=== PATIENT | female | born 1985 | race Caucasian/White ===

== ENCOUNTER 2021-12-13 18:51 | Outpatient (CLI) | payer MEDICAID ==
--- NOTE | 2021-12-14 14:49 | Ultrasound Report ---
PROCEDURE: OB Detailed Eval INDICATIONS: SUPERVISION OF OUTSIDE/PRIOR DATING DATA: Last menstrual period (LMP): Unknown. LMP-based estimated date of delivery (YANN): Unknown. First dating scan (date and location): 09/08/2021. Estimated date of delivery (YANN) from first dating scan: 04/30/2022. The below data below was generated using the ultrasound YANN of 04/30/2022 TECHNIQUE: Real-time scanning was performed of the fetus, with image documentation and biometric measurements. COMPARISON: OB ultrasound report 09/08/2021. No images are available for comparison FINDINGS: General: A single living intrauterine gestation is present. Presentation: Variable Placenta: Placental position is posterior, without previa. Amniotic fluid index: 14.0 cm, been normal limits for gestational age. Largest pocket 4.3 cm heart rate: 148 beats per minute. Maternal cervical canal: 5.2 cm long; normal length is 2.5 cm or more. biometrics: Biparietal diameter: 4.8 cm 20 weeks 4 days Head circumference: 18.6 cm 21 weeks 0 days Abdominal circumference: 15.8 cm 26 weeks 6 days Femur length: 3.5 cm 21 weeks 0 days Estimated gestational age from initial scan: 20 weeks 2 days Composite gestational age from present scan: 20 weeks 6 days Estimated weight and percentile: 386 g 79th percentile Measurement variability in biometric dating: +/- 10 days from 12-20 weeks gestation, +/- 2 weeks from 20-30 weeks gestation, +/- 3 weeks at 30 weeks gestation or later. Anatomic survey: Neuro: Ventricles are normal at less than 10 mm. Cisterna magna is normal at 3-11 mm. Cerebellum i s normal in size and morphology. Nuchal skin fold: Normal at less than 6 mm between 14 and 20 weeks gestational age. Face: Nose and lips, facial profile are normal. Spine: No evidence for spina bifida. Heart: 4-chambered heart and ventricular outflow tracts are suboptimally evaluated. Diaphragm: Diaphragm is intact. Stomach: Left-sided stomach is present. Kidneys: No hydronephrosis. Normal is less than 5 mm in 2nd trimester, less than 7 mm in 3rd trimester. Cord: 3 vessel cord has orthotopic insertion. Bladder: Normal in size. Extremities: All 4 extremities are visualized. IMPRESSION: Single live intrauterine with ultrasound decision of the chest dated 20 weeks 6 days. Suboptimal visualization of four-chamber heart/outflow tracts. Recommend interval imaging follow-up f or further evaluation. Reviewed by: Sakina Rodriguez MD on 12/14/2021 2:47 PM PDT Approved by: Sakina Rodriguez MD on 12/14/2021 2:47 PM PDT Station ID: [id number]
== END 2021-12-13 18:52 | disposition home or self-care (01) ==
LOC: DI 18:51
PROVIDERS: ATTEND Nurse Practitioner
DX: Z34.82 Encounter for supervision of other normal pregnancy, second trimester (principal); Z36.89 Encounter for other specified antenatal screening

== ENCOUNTER 2022-01-12 17:05 | Outpatient (CLI) | payer MEDICAID ==
--- NOTE | 2022-01-13 02:25 | Ultrasound Report ---
PROCEDURE: OB F/U or Repeat INDICATIONS: SUPERVISION OF OUTSIDE/PRIOR DATING DATA: Last menstrual period (LMP): None. First dating scan (date and location): 09/08/2021. Estimated date of delivery (YANN) from first dating scan: 04/30/2022. The below data below was generated using the ultrasound derived YANN of TECHNIQUE: Real-time scanning was performed of the fetus, with image documentation and biometric measurements. COMPARISON: 12/05/2021. FINDINGS: General: A single living intrauterine gestation is present. Presentation: Breech Placenta: Placental position is posterior, without previa. Amniotic fluid index: 15.9 cm, within normal limits for gestational age. Deepest pocket: 5.1 cm. heart rate: 156 beats per minute. Maternal cervical canal: 4.2 cm long; normal length is 2.5 cm or more. Estimated gestational age from initial scan: 24 weeks 4 days. Other: The four-chamber view of the heart and ventricular outflow tracts appear within normal limits. IMPRESSION: 1. Single living intrauterine in breech presentation demonstrated. 2. Limited anatomic survey within normal limits. Reviewed by: Christiano Oliveros MD on 01/13/2022 2:32 AM PDT Approved by: Christiano Oliveros MD on 01/13/2022 2:32 AM PDT Station ID: [id number]
== END 2022-01-12 17:06 | disposition home or self-care (01) ==
LOC: DI 17:05
PROVIDERS: ATTEND Nurse Practitioner
DX: Z34.82 Encounter for supervision of other normal pregnancy, second trimester (principal)

== ENCOUNTER 2022-02-01 09:00 | Outpatient (CLI) | payer MEDICAID ==
[2022-02-01 10:17] LABS: HCT - HEMATOCRIT 39.1 % (37.0-47.0); HGB - HEMOGLOBIN 12.9 g/dL (12.0-16.0); MEAN CORPUSCULAR HEMOGLOBIN 30.4 pg (27.0-31.0); MEAN PLATELET VOLUME 9.5 fL (7.9-10.8); RED BLOOD COUNT 4.25 10^6/uL (4.20-5.40); RED CELL DISTRIBUTION WIDTH 12.8 % (12.0-15.0); WHITE BLOOD COUNT 10.7 x10^3/uL (4.8-10.8)
== END 2022-02-01 09:01 | disposition home or self-care (01) ==
LOC: LAB 09:00
PROVIDERS: ATTEND Obstetrics & Gynecology
DX: Z34.82 Encounter for supervision of other normal pregnancy, second trimester (principal); Z36.89 Encounter for other specified antenatal screening
CPT/HCPCS: 36415; 82950; 85027; 86787

== ENCOUNTER 2022-03-02 13:53 | Outpatient (CLI) | payer MEDICAID ==
--- NOTE | 2022-03-02 21:09 | Ultrasound Report ---
PROCEDURE: OB F/U or Repeat INDICATIONS: UTERINE SIZE DATE DISCREPANCY OUTSIDE/PRIOR DATING DATA: Last menstrual period (LMP): Unknown. First dating scan (date and location): 09/08/2021. Estimated date of delivery (YANN) from first dating scan: 04/30/2022. The below data below was generated using the established YANN of 04/30/2022 TECHNIQUE: Real-time scanning was performed of the fetus, with image documentation and biometric measurements. Endovaginal scanning: Not performed COMPARISON: 01/12/2022 FINDINGS: General: A single living intrauterine gestation is present. Presentation: Vertex Placenta: Placental position is posterior, without previa. Amniotic fluid index: 16.4 cm, normal for gestational age. heart rate: 135 beats per minute. Maternal cervical canal: 4.1 cm long; normal length is 2.5 cm or more. biometrics: Biparietal diameter: 8.13 cm, 32 weeks 5 days Head circumference: 28.83 cm, 31 weeks 5 days Abdominal circumference: 28.99 cm, 33 weeks 0 days Femur length: 6.19 cm, 32 weeks 1 day Estimated gestational age from initial scan: 31 weeks 4 days Composite gestational age from present scan: 32 weeks 3 days Estimated weight and percentile: 2002 g, 72nd percentile Measurement variability in biometric dating: +/- 10 days from 12-20 weeks gestation, +/- 2 weeks from 20-30 weeks gestation, +/- 3 weeks at 30 weeks gestation or more. Other: Not applicable. IMPRESSION: 1. Single living intrauterine in vertex presentation. 2. Estimated weight within normal limits, 72nd percentile. Reviewed by: Darrius Machado MD on 03/02/2022 9:08 PM PST Approved by: Darrius Machado MD on 03/02/2022 9:08 PM PST Station ID: [id number]
== END 2022-03-02 13:54 | disposition home or self-care (01) ==
LOC: DI 13:53
PROVIDERS: ATTEND Obstetrics & Gynecology
DX: O26.843 Uterine size-date discrepancy, third trimester (principal); Z3A.32 32 weeks gestation of pregnancy

== ENCOUNTER 2022-04-06 08:00 | Outpatient (CLI) | payer MEDICAID | END 2022-04-06 23:59 | disposition home or self-care (01) | LOC: LAB.WC 08:00 | PROVIDERS: ATTEND Obstetrics & Gynecology | DX: Z36.85 Encounter for antenatal screening for Streptococcus B (principal) | CPT/HCPCS: 87081; 87181; 87797 ==

== ENCOUNTER 2022-04-20 11:57 | Outpatient (CLI) | payer MEDICAID ==
[2022-04-20 12:06] VITALS: BP 123/81
--- NOTE | 2022-04-24 12:31 | PROCEDURE REPORT ---
- HPI Diagnosis/Indication for NST: Other (Audible decrease in doppler FHR in office) Current EDU 04/30/22 Gestation 38 Weeks and 4 Days 3 Para 2 Vital Signs Temperature 98.2 F 04/20/22 12:03 Heart Rate 71 04/20/22 12:03 Respiratory Rate 16 04/20/22 12:03 Blood Pressure 123/81 H 04/20/22 12:03 Temperature 98.2 F 04/20/22 12:03 Heart Rate 71 04/20/22 12:03 Respiratory Rate 16 04/20/22 12:03 Blood Pressure 123/81 H 04/20/22 12:03 O2 Saturation If not protocol: Oxygen Flow, liters/minute - NST Procedure NST Procedure Start Date 04/20/22 Start Time 11:50 Stop Time 12:40 Vibroacoustic Stimulation Used No Patient States Movement Yes EFM: 120s, moderate variability, positive accelerations 15x15, no decelerations [place]: contractions q4m NST reactive/Cat 1 Performed and read on 04/20/22 - Results and Plan Plan: 36yo at 38.4 with reactive NST - Sent from office for audible deceleration - NST reactive/Cat 1 - SVE in office 1cm, not in labor - Discharge and follow up 1w as scheduled, labor precautions given
== END 2022-04-20 12:45 | disposition home or self-care (01) ==
LOC: WFO 11:57 → FBP 11:58 → WFO 12:45
PROVIDERS: ATTEND Obstetrics & Gynecology
DX: O36.8330 Maternal care for abnormalities of the fetal heart rate or rhythm, third trimester, not applicable or unspecified (principal); Z3A.38 38 weeks gestation of pregnancy
CPT/HCPCS: 59025; 99213

== ENCOUNTER 2022-04-22 21:26 | Outpatient (CLI) | payer MEDICAID ==
[2022-04-22 21:55] VITALS: BP 121/67
--- NOTE | 2022-04-22 22:48 | PROVIDER PROGRESS NOTE ---
- HPI Chief Complaint: Labor Check Current : Vital Signs Temperature 98.2 F 04/22/22 21:40 Heart Rate 61 04/22/22 21:40 Respiratory Rate 16 04/22/22 21:40 Blood Pressure 121/67 04/22/22 21:40 Temperature 98.2 F 04/22/22 21:40 Heart Rate 61 04/22/22 21:40 Respiratory Rate 16 04/22/22 21:40 Blood Pressure 121/67 04/22/22 21:40 O2 Saturation If not protocol: Oxygen Flow, liters/minute - Exam 1.5 cm by RN exam - Procedures OB Procedure Performed: NST Diagnosis/Indication for NST: Other (labor check) NST Procedure: NST Procedure Start Time 11:50 Stop Time 12:40 Procedure Details: Patient is a P2 at 38+6 weeks presenting with contraction every 2-3 minutes. NST: baseline 130, moderate variability, +accels, no decels Reactive NST - Plan Plan: wellbeing reassuring. RN will re-examine patient in 1-2 hours. 1. if cervical change, admit to labor and delivery and start GBS prophylaxis 2. If no cervical change, offered patient augmentation starting at midnight at which time she will be 39 weeks or discharge to home with labor precautions. Counseled patient if she goes home to return for: leakage of fluid, vaginal bleeding, decreased movement, or regular contractions.
== END 2022-04-23 00:20 | disposition home or self-care (01) ==
LOC: WFO 21:26 → FBP 21:27 → WFO 04-23 00:20
PROVIDERS: ATTEND Obstetrics & Gynecology Obstetrics
DX: O47.1 False labor at or after 37 completed weeks of gestation (principal); Z3A.38 38 weeks gestation of pregnancy
CPT/HCPCS: 59025; 99215

== ENCOUNTER 2022-04-25 14:10 | Inpatient (IN) | payer MEDICAID ==
[2022-04-25 14:36] LABS: RUPTURE OF MEMBRANES PLUS POSITIVE (NEGATIVE)
[2022-04-25] MEDS ORDERED: TERBUTALINE 1 MG/ML VIAL SUBQ PRN (15:18)
[2022-04-25] MEDS ORDERED: miSOPROStoL 200 MCG TABLET PR PRN (15:18)
[2022-04-25] MEDS ORDERED: OXYTOCIN 10 UNIT/ML VIAL IM PRN (15:18)
[2022-04-25] MEDS ORDERED: LABETALOL 20 MG/4 ML SYRINGE IVP PRN ×3 (15:18)
[2022-04-25] MEDS ORDERED: miSOPROStoL 200 MCG TABLET BC PRN (15:18)
[2022-04-25] MEDS ORDERED: SODIUM CHLORIDE FLUSH 0.9% 10 ML SYRINGE IVP PRN (15:18)
[2022-04-25] MEDS ORDERED: hydrALAZINE INJ 20 MG/ML VIAL IVP PRN ×2 (15:18)
[2022-04-25] MEDS ORDERED: OXYTOCIN/SODIUM CHLORIDE 500 ML IV PRN (15:18)
[2022-04-25] MEDS ORDERED: fentaNYL 100 MCG/2 ML VIAL IVP PRN (15:18)
[2022-04-25] MEDS ORDERED: TRANEXAMIC ACID IN NACL 1,000 MG/100 ML BAG IV PRN (15:18)
[2022-04-25] MEDS ORDERED: CARBOPROST TROMETHAMINE 250 MCG/ML AMP IM PRN (15:18)
[2022-04-25] MEDS ORDERED: lidocaine 1% 20 ML MDV ID PRN (15:18)
[2022-04-25] MEDS ORDERED: NIFEdipine 10 MG CAPSULE PO PRN (15:18)
[2022-04-25] MEDS ORDERED: METHYLERGONOVINE 0.2 MG/ML VIAL IM PRN (15:18)
--- NOTE | 2022-04-25 15:28 | HISTORY & PHYSICAL EXAMINATION ---
Admit History - Visit Reason Visit Reason: Membranes rupture - : 3 Parity: 2 Risk/History: positive: None Complications This : positive: None - Mother's Labs Mother's Blood Type: positive: O Mother's RH: positive: Positive GBS: positive: Group B Strep Positive (Allergic to amoxicillin) Rubella Status: positive: Immune - Other Maternal History Other Maternal History: HPI: 36-year-old -0-0-2 at 39 weeks 2 days gestation here for rupture membranes. She had rupture of membranes approximately 1:20 PM. She has good movement. No WOLFF/BV or RUQP. No vaginal bleeding. Denies nausea and vomiting. Denies urinary urgency or dysuria. All other symptoms reviewed and were negative except per HPI. Course LMP: 07/13/2021 YANN by LMP: 04/19/2022 Initial U/S: on 09/08/2022 at 6.4 wks NOT c/w LMP dating. Final YANN: 04/30/2022 Pre- weight: 143 BMI: 22.8 O+/Rubella immune VZV: immune Genetic testing: NIPT/genetic carrier screening all negative. IT's A GIRL= Angeles Ramos FAS: WNL- EFW:79%, 3 VC, Posterior placenta (no previa)KVNG WNL F/U US:good visualization of heart and outflow 01/12 F/U growth 03/02- growth ultrasound is normal, 2002g and 72nd percentile. Glucola: 74 Influenza: Declines TDAP:02/02 GBS: Amoxicillin allergy- POS HSV: Denies in self or partner Breast Pump Rx:has one MOD: Anticipate pp contraception: unsure. Considering nuvaring, had Mirena that was expelled after 6 mo. pap: last completed 08/2020-normal Initial GC/CT: negative Not COVID vaccinated. Had minor course of COVID in March 2021. PMH Melanoma of left forearm PCOS Depression PSH Melanoma removal OB History 1. 06/04/2012, 40, , male, 8 pounds 7 ounces 2. 03/27/2014, 40 weeks, , 7 pound 6 ounces SH Denies tobacco, alcohol, drugs Family History Father: Prostate cancer Maternal grandmother: Bladder cancer Allergies Amoxicillin: Rash Medications vitamin Physical exam: General: Alert, oriented, no acute distress Head: Normal cephalic atraumatic Eyes: PERRLA, extraocular motions intact. Respiratory: Normal rate of respiration. No accessory muscle use, normal respiratory effort. Cardiovascular: Regular rate and rhythm Abdomen: Gravid, nontender, nondistended Extremities: Normal range of motion Neuro: Oriented x3. Normal movements Psych: Appropriate mood and affect. Normal judgment and insight SVE: 2/50/-3 FHT: 140 beats per baseline, moderate variability, accelerations present, having one abnormal deceleration while in triage. [place]: Irregular, sometimes 2-4 minutes with some spacing. Plan 36-year-old at 39 weeks 2 days gestation admitted for prelabor rupture of membranes. 1. Term labor/SROM -Patient having some contractions, but not painful. Will allow some time for contractions started as patient is hesitant to try oxytocin. Gave her an additional hour without painful contractions, so we will start oxytocin for hypotonic uterine contractions. -continuous monitoring. -Anticipate -Epidural at patient's request. 2. GBS positive -Plan for cefazolin 2 g followed by 1 g every 8 hours. Meds/Allgy - Allergies Allergies/Adverse Reactions: Allergies Allergy/AdvReac Type Severity Reaction Status Date / Time amoxicillin Allergy Rash Verified 04/22/22 21:36 Physical - Abdominal Exam Vital Signs: Temp Pulse Resp BP Pulse Ox O2 Flow Rate 98.6 F 81 14 124/75 04/25/22 14:30 04/25/22 14:30 04/25/22 14:30 04/25/22 14:30 Plan for Labor - Plan For Labor I expect patient to be DC'd or transferred within 96 hours.: Yes
[2022-04-25 15:44] LABS: BASOPHILS % (AUTO) 0.3 %; EOSINOPHILS # (AUTO) 0.1 10^3/uL (0.0-0.7); EOSINOPHILS % (AUTO) 1.2 %; HCT - HEMATOCRIT 41.1 % (37.0-47.0); HGB - HEMOGLOBIN 14.1 g/dL (12.0-16.0); LYMPHOCYTES # (AUTO) 1.2 10^3/uL (1.5-3.5); LYMPHOCYTES % (AUTO) 12.8 %; MEAN CORPUSCULAR HEMOGLOBIN 30.5 pg (27.0-31.0); MEAN CORPUSCULAR HGB CONC 34.3 g/dL (32.0-36.0); MEAN CORPUSCULAR VOLUME 88.8 fL (81.0-99.0); MEAN PLATELET VOLUME 10.1 fL (7.9-10.8); MONOCYTES # (AUTO) 0.7 10^3/uL (0.0-1.0); MONOCYTES % (AUTO) 7.6 %; NEUTROPHILS # (AUTO) 7.3 10^3/uL (1.5-6.6); NEUTROPHILS % (AUTO) 77.4 %; PLT - PLATELET COUNT 286 10^3/uL (130-450); RED BLOOD COUNT 4.63 10^6/uL (4.20-5.40); RED CELL DISTRIBUTION WIDTH 12.2 % (12.0-15.0); WHITE BLOOD COUNT 9.4 x10^3/uL (4.8-10.8)
[2022-04-25] MEDS ORDERED: SODIUM CHLORIDE FLUSH 0.9% 10 ML SYRINGE IVP SCH (16:00)
[2022-04-25] MEDS ORDERED: OXYTOCIN/SODIUM CHLORIDE 500 ML IV SCH (17:00)
[2022-04-25] MEDS: LACTATED RINGERS 1,000 ML IV SCH ×2 (17:01→21:39)
[2022-04-25] MEDS ORDERED: ROPIVACAINE 0.2% 200 MG/100 ML BAG EP ONE (19:35)
[2022-04-25] MEDS ORDERED: diphenhydrAMINE INJ 50 MG/ML VIAL IVP PRN (20:23)
[2022-04-25] MEDS ORDERED: METOCLOPRAMIDE 10 MG/2 ML VIAL IVP PRN (20:23)
[2022-04-25] MEDS ORDERED: ONDANSETRON 4 MG/2 ML VIAL IVP PRN (20:23)
[2022-04-25] MEDS ORDERED: ROPIVACAINE 0.2% 200 MG/100 ML BAG EP PRN (20:23)
[2022-04-25] MEDS ORDERED: NALOXONE 0.4 MG/ML VIAL IVP PRN (20:23)
[2022-04-25] MEDS ORDERED: NALBUPHINE 10 MG/ML AMP IVP PRN (20:23)
[2022-04-25] MEDS ORDERED: ePHEDrine 50 MG/ML VIAL IVP PRN (20:23)
--- NOTE | 2022-04-25 20:23 | ANESTHESIA ---
Pre-Anesthesia VS, & Labs - Diagnosis labor pain - Procedure labor epidural Vital Signs: Temp Pulse Resp BP Pulse Ox O2 Flow Rate 37.0 C 81 14 124/75 04/25/22 15:21 04/25/22 14:30 04/25/22 14:30 04/25/22 14:30 Height: 5 ft 6 in Weight (kg): 78.018 kg Body Mass Index: 27.7 BMI Classification: Overweight - NPO Other (eaating/drinking until epidural placement) - Is Patient ?: Yes - Lab Results Current Lab Results: Laboratory Tests 04/25/22 17:30: Blood Type Recheck O POSITIVE 04/25/22 15:25: WBC 9.4, RBC 4.63, Hgb 14.1, Hct 41.1, MCV 88.8, MCH 30.5, MCHC 34.3, RDW 12.2, Plt Count 286, MPV 10.1, Neut # (Auto) 7.3 H, Lymph # (Auto) 1.2 L, [place] # (Auto) 0.7, Eos # (Auto) 0.1, Baso # (Auto) 0.0, Absolute Nucleated RBC 0.00, Nucleated RBC % 0.0 04/25/22 15:25: Blood Type O POSITIVE, Antibody Screen NEGATIVE Fish Bones: 04/25/22 15:25 Home Medications and Allergies Active Medications Carboprost Tromethamine (Carboprost Tromethamine 250 Mcg/Ml Amp) 250 mcg IM .ONCE PRN PRN Reason: Hemorrhage Fentanyl (Fentanyl 100 Mcg/2 Ml Vial) 50 mcg IVP Q1H PRN PRN Reason: Severe Pain (score 7-10) Hydralazine HCl (Hydralazine Inj 20 Mg/Ml Vial) 5 - 10 mg IVP Q20M PRN; Protocol PRN Reason: SBP> or= 160 OR DBP> or= 110 Hydralazine HCl (Hydralazine Inj 20 Mg/Ml Vial) 10 mg IVP .ONCE PRN; Protocol PRN Reason: SBP> or= 160 OR DBP> or= 110 Oxytocin/Sodium Chloride (Pitocin/Sodium Chloride) 500 mls @ 999 mls/hr IV PRN PRN; Protocol PRN Reason: POST- HEMORR PREVENTION Tranexamic Acid (Tranexamic 1,000 Mg/100ml-Nacl) 1,000 mg in 100 mls @ 600 mls/hr IV Q30M PRN PRN Reason: EBL >1200mL and within 3hr Lactated Ringer's (Lr) 1,000 mls @ 125 mls/hr IV .Q8H [facility] Last Admin: 04/25/22 17:01 Dose: 125 mls/hr Cefazolin Sodium 1 gm/ Sodium (Chloride) 100 mls @ 200 mls/hr IV Q8H PERLA Oxytocin/Sodium Chloride (Pitocin/Sodium Chloride) 500 mls @ 1 mls/hr IV TITR PERLA; Protocol Last Admin: 04/25/22 17:17 Dose: 2 milliunit/min, 2 mls/hr Labetalol HCl (Labetalol 20 Mg/4 Ml Syringe) 20 - 80 mg IVP Q10M PRN; Protocol PRN Reason: SBP> or= 160 OR DBP> or= 110 Labetalol HCl (Labetalol 20 Mg/4 Ml Syringe) 20 mg IVP .ONCE PRN; Protocol PRN Reason: SBP> or= 160 OR DBP> or= 110 Labetalol HCl (Labetalol 20 Mg/4 Ml Syringe) 20 - 40 mg IVP Q10M PRN; Protocol PRN Reason: SBP> or= 160 OR DBP> or= 110 Lidocaine HCl (Lidocaine 1% 20 Ml Mdv) 20 ml ID .ONCE PRN PRN Reason: PERINEAL REPAIR Stop: 04/28/22 15:18 Methylergonovine Maleate (Methylergonovine 0.2 Mg/Ml Vial) 0.2 mg IM .ONCE PRN PRN Reason: Hemorrhage Misoprostol (Misoprostol 200 Mcg Tablet) 600 mcg BC .ONCE PRN PRN Reason: Hemorrhage Misoprostol (Misoprostol 200 Mcg Tablet) 800 mcg [place] .ONCE PRN PRN Reason: Hemorrhage Nifedipine (Nifedipine 10 Mg Capsule) 10 - 20 mg PO Q20M PRN; Protocol PRN Reason: SBP> or= 160 OR DBP> or= 110 Oxytocin (Oxytocin 10 Unit/Ml Vial) 10 unit IM .ONCE PRN PRN Reason: Step One if no IV access. Sodium Chloride (Sodium Chloride Flush 0.9% 10 Ml Syringe) 10 ml IVP PRN PRN PRN Reason: NEEDED PER PROVIDER ORDERS Sodium Chloride (Sodium Chloride Flush 0.9% 10 Ml Syringe) 10 ml IVP Q8H [facility] Terbutaline Sulfate (Terbutaline 1 Mg/Ml Vial) 0.25 mg SUBQ .ONCE PRN PRN Reason: Tachystole Allergies/Adverse Reactions: Allergies Allergy/AdvReac Type Severity Reaction Status Date / Time amoxicillin Allergy Rash Verified 04/22/22 21:36 Anes History & Medical History - Anesthetic History Anesthesia Complications: reports: No previous complications Family history of Anesthesia Complications: Denies Family history of Malignant Hyperthermia: Denies - Medical History Cardiovascular: reports: None Pulmonary: reports: None Gastrointestinal: reports: None Urinary: reports: None Neuro: reports: None Musculoskeletal: reports: None Endocrine/Autoimmune: reports: None Blood Disorders: reports: None Skin: reports: None Smoking Status: Never smoker Psychosocial: reports: No issues indicated - Obstetrical History : 3 Parity: 2 Events: reports: None Complications: reports: None Exam General: Alert, Oriented x3, Cooperative Dental: WNL Mouth Openin Fingerbreadth Neck Mobility: Normal Mallampati classification: I Respiratory: Lungs clear Cardiovascular: Regular rate Plan Anesthesia Type: Epidural Consent for Procedure(s) Verified and Reviewed: Yes Code Status: Attempt Resuscitation ASA classification: 2-Mild systemic disease Is this case an emergency?: No
--- NOTE | 2022-04-25 21:19 | PROVIDER PROGRESS NOTE ---
Labor Progress Note - Uterine Monitoring Uterine Monitoring Mode: positive: External toco Contraction Frequency (min/apart): 2-3 Contraction Intensity: positive: Moderate Uterine Resting Tone: positive: Soft - Monitoring Monitor Mode: positive: External ultrasound Heart Rate Baseline: 135 Heart Rate Variability: positive: Moderate (6-25 bmp) Accelerations: positive: Present, 15x15 Decelerations: positive: Prolonged (>2x10 min) Strip Review: positive: Category II - Vaginal Exam Dilation (in cm): 3 - Labor Progress Note Labor Progress Note/Additional Text: Went to patient's room to examine after she had a prolonged deceleration. She recorded recovered after approximately 5 minutes. These resolved with position changes. Fetus has been category 1 since. Patient is only 3 cm dilated, and oxytocin had to be discontinued at this time. We will give a break of 30 minutes then restart at 1 milliunit/min.
--- NOTE | 2022-04-25 23:13 | PROVIDER PROGRESS NOTE ---
Labor Progress Note - Uterine Monitoring Uterine Monitoring Mode: positive: External toco Contraction Frequency (min/apart): 2-4 Contraction Intensity: positive: Strong - Monitoring Monitor Mode: positive: External ultrasound Heart Rate Baseline: 145 Heart Rate Variability: positive: Moderate (6-25 bmp) Accelerations: positive: Absent Decelerations: positive: Variable, Recurrent (>50% x20 min) Strip Review: positive: Category II - Vaginal Exam Dilation (in cm): 4 Effacement (%): 70 Station: -3 - Labor Progress Note Labor Progress Note/Additional Text: Patient has made some cervical change despite not restart oxytocin. Still jarrett every 2 to 4 minutes with strong contractions, but began having recurrent variable decelerations. IUPC was placed and will start amnioinfusion.
[2022-04-25] MEDS ORDERED: SODIUM CHLORIDE 0.9% 1,000 ML IV ONE (23:33)
[2022-04-25] MEDS ORDERED: ceFAZolin 1 GM in SODIUM CHLORIDE 0.9% MINIBAG 100 ML IV SCH (23:45)
[2022-04-26] MEDS ORDERED: SIMETHICONE CHEW 80 MG TABLET PO PRN (02:02)
--- NOTE | 2022-04-26 02:02 | DELIVERY NOTE ---
Delivery Note - Labor Labor: positive: Augmented by oxytocin - Delivery Method Delivery Method: positive: Spontaneous vaginal delivery - Presentation Presentation: positive: MARC - right occiput anterior - Nuchal Cord Nuchal Cord: positive: Present, Reduced - Anesthetic Anesthetic Type: - Amniotic Fluid Description Amniotic Fluid Description: positive: Clear - Laceration Laceration: positive: None - Delivery Outcome Delivery Outcome: positive: Livebirth - [place] : positive: Placed in direct skin contact with mother, Suctioned, [place] used [place] sex: positive: Female - Cord Cord: positive: 3 vessels - Placenta Placenta: positive: Intact - Estimated Blood Loss Estimated Blood Loss (in cc): 350 - Post Delivery Events Post Delivery Events: positive: No post delivery events - Delivery Comments (Free Text/Narrative) Delivery Comments (Free Text/Narrative): Preoperative Diagnoses 39 weeks gestation Prelabor rupture of membranes GBS positive Postoperative Diagnoses Same Delivery of live [place] Patient presented at 39 weeks gestation with spontaneous rupture of membranes prior to the onset of labor. Oxytocin was initiated for augmentation. She had an intermittent category 2 tracing with a prolonged deceleration at which point the oxytocin was discontinued. She later had a run of recurrent variable decelerations which did not resolve with position changes. She received an IUPC and a subsequent amnioinfusion which resolved the variable decelerations. After this she progressed to complete and ready to push. Delivery Summary: Patient was placed in the dorsal lithotomy position. Upon maternal pushing the head was delivered atraumatically at which point a nuchal cord was noted and was reduced prior to completing delivery, and subsequently the delivery of the anterior shoulder, posterior shoulder, then the remainder of the 's body was performed. At that point, the cord was found to be wrapped around the erlinda martha's foot, body, arm and were all removed. The was placed on its mother's chest. After the cord finished pulsating, the umbilical cord was clamped times two and cut. A live female was delivered with APGARS of 9 at 1 minute and 9 at 5 minutes. The placenta delivered intact with three vessel cord. Placenta was not sent to pathology. Thirty units of Pitocin were added to the IV fluid and allowed to run freely. Uterine massage was performed until uterus was deemed firm. Upon inspection of the perineum, vagina and cervix were intact. Uterus was massaged and found to be firm. Needle and sponge counts were correct. Patient was stable and allowed to recover in L&D room. was stable and remained in room with mother. weight is pending at this time.
[2022-04-26] MEDS ORDERED: LACTATED RINGERS 1,000 ML IV SCH (03:00)
[2022-04-26] MEDS: IBUPROFEN 600 MG TABLET PO SCH ×3 (03:33→16:38)
[2022-04-26] MEDS: ACETAMINOPHEN 500 MG TABLET PO SCH ×3 (04:46→21:35)
[2022-04-26] MEDS: DOCUSATE SODIUM 100 MG CAPSULE PO PRN (21:35)
[2022-04-27] MEDS: IBUPROFEN 600 MG TABLET PO SCH ×2 (01:50→08:31)
[2022-04-27 08:23] VITALS: BP 114/74
[2022-04-27] MEDS: ACETAMINOPHEN 500 MG TABLET PO SCH (08:30)
[2022-04-27] MEDS: DOCUSATE SODIUM 100 MG CAPSULE PO PRN (08:30)
--- NOTE | 2022-04-27 10:03 | Discharge Plan ---
Discharge Plan Problem Reviewed?: Yes Disposition: Home, Self Care Condition: Good Diet: Regular Shower Restrictions: No Instruction Topics: Vaginal After No Smoking: If you smoke, Please STOP! Call for help. Follow-up with: Lucia Barreto DO [Primary Care Provider] -
--- NOTE | 2022-04-27 10:05 | DISCHARGE SUMMARY ---
Discharge Summary Admit Date: 04/25/22 Discharge Date: 04/27/22 Discharging Provider: Huber Landaverde MD Code Status: Attempt Resuscitation Condition at Discharge: Good Discharge Disposition: 01 Home, Self Care - DIAGNOSES Admission Diagnoses: 39 weeks gestation Prelabor rupture of membranes GBS positive Discharge Diagnoses with Status of Each Condition: 39 weeks gestation: Delivered Prelabor rupture of membranes: Delivered GBS positive: Stable - HPI History of Present Illness: Subjective Patient reports she is doing well. Lochia appropriate. Denies heavy bleeding. Ambulating. Pelvic and abdominal pain well-controlled. Tolerating oral intake. Diet: Regular. Voiding without difficulty. Passing flatus. Denies BM. Patient is bonding with baby in room Breast feeding going well. Denies feeling lightheaded, dizzy or excessively fatigued. Objective General: Alert, oriented, no apparent distress. Cardiovascular: Regular rate. Regular rhythm. Lungs: No increased work of breathing. Abdomen: Uterus firm. Below umbilicus. No guarding or rebound. Extremities: No pain on palpation. No cords palpated. Distal pulses intact. - HOSPITAL COURSE Hospital Course: Patient presented to labor and delivery at 39 weeks gestation with spontaneous rupture of membranes without contractions. She was augmented with oxytocin. She had cefazolin for GBS sepsis prophylaxis. She had an intermittent category 2 tracing but had an uncomplicated vaginal delivery. She was counseled on the risk of depression as well as concerns of bleeding, pain, breast-feeding. She and were well and were discharged on day 1. - ALLERGIES Allergies/Adverse Reactions: Allergies Allergy/AdvReac Type Severity Reaction Status Date / Time amoxicillin Allergy Rash Verified 04/22/22 21:36 - LABS Result Diagrams: 04/25/22 15:25 - FOLLOW UP Follow Up: With Lucia Barreto at [facility] women's care in 1 week - TIME SPENT Time Spent in Discharge (Minutes): 20
--- NOTE | 2022-04-27 12:18 | Labor Flowsheet ---
Labor Flowsheet Datetime Report Generated by CPN: 04/27/2022 12:18 Datetime: 04/27/2022 08:22 VITAL SIGNS NBP Sys/Nabila/Mean (mmHg): 114 : 74 : 82 Pulse: 57 Datetime: 04/26/2022 20:33 SpO2 (%): 100 Datetime: 04/26/2022 06:18 Respirations: 16 Temperature (C): 36.8 Temperature Route: Oral PAIN Pain Scale: 4 Pain Presence: Intermittent Pain Type: Cramping; Contraction Pain Location: Abdomen Pain Relief Measures: Comfort Measures Datetime: 04/26/2022 05:42 Stage of : Datetime: 04/26/2022 04:12 Epidural Procedure Other: Cath Removed Datetime: 04/26/2022 02:32 Antibiotics: Ancef IV (Gm) @ (Annotations: 1 gram) Datetime: 04/26/2022 01:48 MEDICATIONS Pitocin (milliunits): Started @ 999 Stage 2 Comments: PLACENTA OUT Datetime: 04/26/2022 01:45 Membranes Ruptured Date/Time: 04/25/2022 13:20 Membranes Rupture Method: Spontaneous Amniotic Fluid Color: Clear Amniotic Fluid Amount: Small Amniotic Fluid Odor: Normal LaborFlag: Labor Datetime: 04/26/2022 01:40 ASSESSMENT A Monitor Mode: External US FHR Baseline Rate : 160 Variability: Moderate 6-25 bpm Decelerations: Early; Variable Category: Category II Datetime: 04/26/2022 01:35 Membrane Comments: IUPC removed by Dr. Akhil Datetime: 04/26/2022 01:31 STAGE 2 Pushing Position: Pushing with Contractions; Pushing Lithotomy Pushing Progress: Pushing Effectively with Contractions Datetime: 04/26/2022 01:30 UTERINE ACTIVITY Monitor Mode: Internal Frequency (min): 1-2 Duration (sec): 50-80 Pattern: Tachysystole: > 5 Contractions in 10 Minutes Sheldon Units (mmHg): 125 Contraction Comments: preparing to push Comments: unable to assess category due to maternal movement preparing for pushing phase. Possible variables noted. Patient Care Comments: lithotomy position Datetime: 04/26/2022 01:24 I/O Interventions: Lopes Discontinued Datetime: 04/26/2022 01:22 Patient Position/Activity: Semi-Fowlers Datetime: 04/26/2022 01:17 VAGINAL EXAM Dilatation (cm): 10.0 Effacement (%): 100 Station: 0 Exam by: Dr. Landaverde Datetime: 04/26/2022 01:15 Quality: Strong Resting Tone (Palpate): Relaxed Datetime: 04/26/2022 01:12 Monitor Interventions for FHR: Ultrasound Adjusted Datetime: 04/26/2022 01:06 Communication Comments: Dr. Akhil notified of patient status Datetime: 04/26/2022 00:30 Accelerations: None Datetime: 04/26/2022 00:05 Anesthesia Level Check: T9 Datetime: 04/25/2022 22:45 FHR Baseline Changes: No Baseline Change Datetime: 04/25/2022 22:30 Actions for Decelerations: Side to Side Datetime: 04/25/2022 21:20 Medication Comments: Pitocin not resumed due to cat 2 strip, provider aware. No new orders at this time. Datetime: 04/25/2022 20:35 Vaginal Bleeding: None Vaginal Exam Comments: no cord felt by RN during cervical check Datetime: 04/25/2022 20:16 Pain Coping: Talking Through Contractions Datetime: 04/25/2022 20:08 Epidural Procedure: Completed Datetime: 04/25/2022 19:51 Anesthesia Comments: numbing medication placed Datetime: 04/25/2022 19:40 Epidural Positioning: Sitting Datetime: 04/25/2022 19:37 ANESTHESIA Anesthesia Plans: Epidural Datetime: 04/25/2022 19:15 Pitocin Checklist: At Least 1 Acceleration of 15 bpm x 15 Seconds in 30 Minutes or Adequate Variabi lity; No More than 1 Late Deceleration Occurred in Past 30 Minutes; No More than 2 Variable Decelerat ions > 60 Seconds in Duration and decreasing >60 bpm in 30 minutes; No More than 5 Uterine Contractio ns in 10 Minutes for any 20 Minute Interval; Uterus Palpates Soft between Contractions COMMUNICATION Communication: Report Given to @ Mellissa, RN Datetime: 04/25/2022 19:10 PATIENT CARE IV/Blood Work: IV Bolus Started Datetime: 04/25/2022 19:08 Pain Assessment Comments: Call to [employer] [place] for patient request epidural. [employer] requests this R N initiate IV fluid bolus of 500mL Datetime: 04/25/2022 18:30 Monitor Interventions for UA: [place] Adjusted
== END 2022-04-27 11:45 | disposition home or self-care (01) | DRG 807 ==
LOC: WFO 14:10 → FBP 14:13 → WFO 15:17 → FBP 15:18
PROVIDERS: ADMIT Obstetrics & Gynecology; ATTEND Obstetrics & Gynecology
PROC: 10H07YZ Insertion of Other Device into Products of Conception, Via Natural or Artificial Opening (ICD-10-PCS; principal; 2022-04-25)
PROC: 10E0XZZ Delivery of Products of Conception, External Approach (ICD-10-PCS; 2022-04-26)
DX: O42.02 Full-term premature rupture of membranes, onset of labor within 24 hours of rupture (principal); Z37.0 Single live birth; O99.824 Streptococcus B carrier state complicating childbirth; O69.81X0 Labor and delivery complicated by cord around neck, without compression, not applicable or unspecified; O76 Abnormality in fetal heart rate and rhythm complicating labor and delivery; Z3A.39 39 weeks gestation of pregnancy
CPT/HCPCS: 84112; 85025; 86850; 86900; 86901; 99215; A9270; J7040; J7120

== ENCOUNTER 2022-12-21 13:32 | Outpatient (CLI) | payer MEDICAID ==
--- NOTE | 2022-12-21 15:38 | XRAY Report ---
PROCEDURE: Cervical Spine Comp w/Flex/Ext INDICATIONS: NECK PAIN TECHNIQUE: 7 views of the cervical spine were acquired. COMPARISON: None. FINDINGS: Bones: No fractures or dislocations to the T1 level. Mild degenerative endplate changes are noted a t C5-6 level. No suspicious bony lesions. There is normal range of motion between flexion and extens ion, with preserved normal bony alignment. Oblique views shows no significant bony foraminal stenosis . Soft tissues: Prevertebral soft tissues are normal in thickness. IMPRESSION: Mild degenerative disc disease at C5-6 level. Straightening of normal cervical lordosis. No fracture or dislocation. No significant bony foraminal stenosis. Normal range of motion on latera l flexion and extension views. Reviewed by: Yoandy Beltran MD on 12/21/2022 3:37 PM PDT Approved by: Yoandy Beltran MD on 12/21/2022 3:37 PM PDT Station ID: [id number]
== END 2022-12-21 13:33 | disposition home or self-care (01) ==
LOC: DI 13:32
PROVIDERS: ATTEND Physician Assistant
DX: M50.322 Other cervical disc degeneration at C5-C6 level (principal)